=== PATIENT | female | born 1965 | race Caucasian/White ===

== ENCOUNTER 2018-08-30 14:20 | Observation (INO) | payer OTHER ==
[2018-08-30 17:59] LABS: ADD MAN DIFF? NO
[2018-08-30] MEDS: LORAZEPAM 2 MG INJ IV (18:03)
[2018-08-30] MEDS: SOD CHLORIDE 0.9% 1,000 ML IV (18:03)
[2018-08-30] MEDS: KETOROLAC 15 MG INJ IV (18:03)
[2018-08-30 18:13] LABS: BASOPHILS % 0.3 % (0.0-2.0); EOSINOPHILS % 4.4 % (0.0-7.0); HEMOGLOBIN 12.7 g/dl (12.0-16.0); LYMPHOCYTES % 38.3 % (15.0-51.0); MEAN CORPUSCULAR HEMOGLOBIN 30.7 pg (29.0-33.0); MEAN CORPUSCULAR HGB CONC 33.4 g/dl (32.0-37.0); MEAN CORPUSCULAR VOLUME 91.8 fl (82.0-101.0); NEUTROPHILS % 49.8 % (39.0-77.0); PLATELET COUNT 253 10^3/UL (140-415); RED BLOOD COUNT 4.14 10^6/ul (4.20-5.40)
[2018-08-30 18:13] LABS: WHITE BLOOD COUNT 5.7 10^3/ul (4.8-10.8)
[2018-08-30 18:25] LABS: INR 1.03; PROTIME 13.6 Sec (11.9-14.9); PT RATIO 1.1
[2018-08-30 18:27] LABS: ANION GAP 10 (5-13); BLOOD UREA NITROGEN 15 mg/dl (7-20); CALCIUM 9.4 mg/dl (8.4-10.2); CARBON DIOXIDE 26 mmol/L (21-31); CHLORIDE 107 mmol/L (97-110); CREATININE 0.49 mg/dl (0.44-1.00); Estimated GFR > 60 mL/min (>60); GLUCOSE 119 mg/dl (70-220); POTASSIUM 3.9 mmol/L (3.5-5.1); SODIUM 143 mmol/L (135-144)
[2018-08-30 18:38] LABS: TROPONIN-I < 0.012 ng/ml (0.000-0.120)
[2018-08-30] MEDS ORDERED: ACETAMINOPHEN 325 MG TAB PO (19:00)
[2018-08-30] MEDS ORDERED: ONDANSETRON 4 MG INJ IV ×2 (19:00→23:30)
[2018-08-30] MEDS: ASPIRIN 81 MG TAB PO (19:28)
[2018-08-30] MEDS: AL HYDROX/MG HYDROX/SIMETH 30 ML CUP PO (23:51)
[2018-08-30] MEDS: morphine 2 MG INJ IV (23:52)
[2018-08-31 01:18] LABS: CREATINE KINASE 102 IU/L (23-200)
[2018-08-31 01:31] LABS: CK INDEX 1.2; CK-MB 1.23 ng/ml (0.0-2.4); TROPONIN-I < 0.012 ng/ml (0.000-0.120)
[2018-08-31] MEDS: PANTOPRAZOLE 40 MG INJ IV (05:05)
[2018-08-31 06:57] LABS: CREATINE KINASE 83 IU/L (23-200)
[2018-08-31 07:06] LABS: CK INDEX 1.1; CK-MB 0.89 ng/ml (0.0-2.4); TROPONIN-I < 0.012 ng/ml (0.000-0.120)
[2018-08-31] MEDS: ASPIRIN 81 MG TAB PO (09:41)
[2018-08-31] MEDS: ACETAMINOPHEN 325 MG TAB PO (09:44)
[2018-08-31 13:53] LABS: TROPONIN-I < 0.012 ng/ml (0.000-0.120)
[2018-08-31] MEDS: IBUPROFEN 400 MG TAB PO ×2 (14:43→21:01)
[2018-08-31 17:48] LABS: CHOLESTEROL 188 mg/dl (100-200)
[2018-08-31 17:48] LABS: CHOL/HDL RATIO 4.7 RATIO; HDL CHOLESTEROL 40 mg/dl (37-92); LDL CHOLESTEROL,CALCULATED 114 mg/dl; TRIGLYCERIDES 171 mg/dl (0-149)
[2018-08-31] MEDS: ATORVASTATIN 80 MG TAB PO (21:01)
[2018-08-31] MEDS: AL HYDROX/MG HYDROX/SIMETH 30 ML CUP PO (21:46)
[2018-08-31 22:44] LABS: ADD UMIC YES; UR ASCORBIC ACID NEGATIVE (NEGATIVE); UR BILIRUBIN (Dip) NEGATIVE (NEGATIVE); UR BLOOD (Dip) NEGATIVE (NEGATIVE); UR CLARITY CLEAR (CLEAR); UR COLOR STRAW (YELLOW); UR GLUCOSE (Dip) NEGATIVE (NEGATIVE); UR KETONES (Dip) NEGATIVE (NEGATIVE); UR LEUKOCYTE ESTERASE (Dip) 3+ Leu/ul (NEGATIVE); UR NITRITE (Dip) NEGATIVE (NEGATIVE); UR RBC 3 /HPF (0-5); UR SPECIFIC GRAVITY (Dip) 1.009 (1.003-1.030); UR SQUAMOUS EPITHELIAL CELL FEW /HPF (FEW); UR TOTAL PROTEIN (Dip) NEGATIVE (NEGATIVE); UR UROBILINOGEN (Dip) NEGATIVE (NEGATIVE); UR WBC 53 /HPF (0-5)
[2018-08-31 22:56] LABS: AMPHETAMINE/METHAMPHETAMINE Negative (NEGATIVE); BARBITURATES Negative (NEGATIVE); BENZODIAZEPINES Negative (NEGATIVE); CANNABINOIDS Negative (NEGATIVE); COCAINE Negative (NEGATIVE); OPIATES Negative (NEGATIVE)
[2018-09-01] MEDS: PANTOPRAZOLE (EC) 40 MG TAB PO (06:10)
[2018-09-01] MEDS: IBUPROFEN 400 MG TAB PO ×3 (06:10→21:36)
[2018-09-01] MEDS: ASPIRIN 81 MG TAB PO (08:36)
[2018-09-01] MEDS: BALSAM PERU/CASTOR OIL 60 GM TUBE TOP ×2 (08:37→21:15)
[2018-09-01] MEDS: GABAPENTIN 300 MG CAP PO (21:14)
[2018-09-01] MEDS: ATORVASTATIN 80 MG TAB PO (21:14)
[2018-09-02] MEDS: IBUPROFEN 400 MG TAB PO ×2 (06:16→13:21)
[2018-09-02] MEDS: PANTOPRAZOLE (EC) 40 MG TAB PO (06:16)
[2018-09-02] MEDS: ASPIRIN 81 MG TAB PO (09:00)
[2018-09-02] MEDS: GABAPENTIN 300 MG CAP PO ×2 (09:00→13:21)
[2018-09-02] MEDS: BALSAM PERU/CASTOR OIL 60 GM TUBE TOP (09:01)
[2018-09-02 10:52] LABS: D-DIMER 306.73 ng/ml (<460)
[2018-09-02] MEDS: ENOXAPARIN 40 MG/0.4 ML SYG SC (14:30)
[2018-09-02] MEDS: CEFTRIAXONE 1 GM/50 ML (PMX) 50 ML IVPB (15:46)
== END 2018-09-02 17:50 | disposition home or self-care (01) ==
LOC: E/R 14:20 → 6WM 18:58
DX: M48.02 Spinal stenosis, cervical region (principal); R07.9 Chest pain, unspecified; E66.9 Obesity, unspecified; Z68.33 Body mass index [BMI] 33.0-33.9, adult; E78.5 Hyperlipidemia, unspecified; N39.0 Urinary tract infection, site not specified; R20.0 Anesthesia of skin
CPT/HCPCS: 36415; 70450; 70551; 71045; 71100; 72125; 72141; 80048; 80061; 80307; 81001; 82550; 82553; 84484; 85025; 85378; 85610; 85730; 93005; 93306; 96361; 96374; 96375; 97162; 99285-25; G0378

== ENCOUNTER 2018-12-22 22:17 | Emergency (ER) | payer OTHER ==
[2018-12-22 22:37] LABS: URINE BLOOD (Dip) POC Trace-intact (NEGATIVE); URINE GLUCOSE (Dip) POC Negative (NEGATIVE); URINE KETONES (Dip) POC Trace (NEGATIVE); URINE LEUKOCYTE EST (Dip) POC Trace (NEGATIVE); URINE NITRITE (Dip) POC Negative (NEGATIVE); URINE TOTAL PROTEIN POC Trace (NEGATIVE)
[2018-12-22 22:37] LABS: URINE PH (Dip) POC 5.5 (5.0-8.5)
[2018-12-22] MEDS: DIPHENHYDRAMINE 50 MG INJ IV (23:00)
[2018-12-22] MEDS: SOD CHLORIDE 0.9% 1,000 ML IV (23:00)
[2018-12-22] MEDS: KETOROLAC 30 MG INJ IV (23:01)
[2018-12-22 23:15] LABS: ADD MAN DIFF? NO
[2018-12-22 23:16] LABS: BASOPHILS % 0.5 % (0.0-2.0); EOSINOPHILS # 0.3 10^3/ul (0.0-0.5); EOSINOPHILS % 4.3 % (0.0-7.0); HEMATOCRIT 39.5 % (37.0-47.0); HEMOGLOBIN 13.6 g/dl (12.0-16.0); LYMPHOCYTES # 2.2 10^3/ul (0.8-2.9); LYMPHOCYTES % 36.2 % (15.0-51.0); MEAN CORPUSCULAR HEMOGLOBIN 31.5 pg (29.0-33.0); MEAN CORPUSCULAR HGB CONC 34.4 g/dl (32.0-37.0); MEAN CORPUSCULAR VOLUME 91.4 fl (82.0-101.0); MEAN PLATELET VOLUME 9.9 fl (7.4-10.4); MONOCYTE # 0.4 10^3/ul (0.3-0.9); MONOCYTES % 7.3 % (0.0-11.0); NEUTROPHIL # 3.1 10^3/ul (1.6-7.5); NEUTROPHILS % 51.4 % (39.0-77.0); PLATELET COUNT 264 10^3/UL (140-415); RED BLOOD COUNT 4.32 10^6/ul (4.20-5.40)
[2018-12-22 23:34] LABS: ALANINE AMINOTRANSFERASE 27 IU/L (13-69); ALBUMIN 4.3 g/dl (3.3-4.9); ALBUMIN/GLOBULIN RATIO 1.34; ALKALINE PHOSPHATASE 128 IU/L (42-121); ANION GAP 12 (5-13); ASPARTATE AMINO TRANSFERASE 28 IU/L (15-46); BILIRUBIN,INDIRECT 0.3 mg/dl (0-1.1); BILIRUBIN,TOTAL 0.3 mg/dl (0.2-1.3); BLOOD UREA NITROGEN 15 mg/dl (7-20); CALCIUM 9.2 mg/dl (8.4-10.2); CARBON DIOXIDE 25 mmol/L (21-31); CHLORIDE 106 mmol/L (97-110); CREATININE 0.62 mg/dl (0.44-1.00); Estimated GFR > 60 mL/min (>60); GLUCOSE 104 mg/dl (70-220); LIPASE 106 U/L (23-300); SODIUM 143 mmol/L (135-144); TOTAL PROTEIN 7.5 g/dl (6.1-8.1)
[2018-12-22] MEDS: PROCHLORPERAZINE 10 MG INJ IV (23:43)
[2018-12-22 23:46] LABS: TROPONIN-I < 0.012 ng/ml (0.000-0.120)
== END 2018-12-23 01:08 | disposition home or self-care (01) ==
LOC: FTE 12-23 01:08
DX: R51 Headache (principal); R10.9 Unspecified abdominal pain; Z79.82 Long term (current) use of aspirin
CPT/HCPCS: 36415; 71045; 80053; 81003; 83690; 84484; 85025; 93005; 96374; 96375; 99285-25

== ENCOUNTER → 2018-12-31 | Emergency (ER) | payer OTHER ==
[2018-12-31] MEDS: ONDANSETRON (ODT) 4 MG TAB ODT (14:22)
[2018-12-31] MEDS: ACETAMINOPHEN 325 MG TAB PO (14:22)
[2018-12-31 14:31] LABS: ADD MAN DIFF? NO
[2018-12-31 14:38] LABS: BASOPHILS % 0.4 % (0.0-2.0); EOSINOPHILS # 0.2 10^3/ul (0.0-0.5); EOSINOPHILS % 4.1 % (0.0-7.0); HEMATOCRIT 38.4 % (37.0-47.0); HEMOGLOBIN 13.4 g/dl (12.0-16.0); LYMPHOCYTES # 1.8 10^3/ul (0.8-2.9); MEAN CORPUSCULAR HEMOGLOBIN 31.8 pg (29.0-33.0); MEAN CORPUSCULAR HGB CONC 34.9 g/dl (32.0-37.0); MEAN PLATELET VOLUME 10.2 fl (7.4-10.4); MONOCYTE # 0.3 10^3/ul (0.3-0.9); MONOCYTES % 6.1 % (0.0-11.0); NEUTROPHIL # 3.1 10^3/ul (1.6-7.5); NEUTROPHILS % 56.2 % (39.0-77.0); PLATELET COUNT 272 10^3/UL (140-415); RED BLOOD COUNT 4.22 10^6/ul (4.20-5.40); RED CELL DISTRIBUTION WIDTH 12.1 % (11.5-14.5)
[2018-12-31 14:38] LABS: WHITE BLOOD COUNT 5.6 10^3/ul (4.8-10.8)
[2018-12-31 14:42] LABS: ADD UMIC YES; UR ASCORBIC ACID NEGATIVE (NEGATIVE); UR BILIRUBIN (Dip) NEGATIVE (NEGATIVE); UR BLOOD (Dip) NEGATIVE (NEGATIVE); UR CLARITY CLEAR (CLEAR); UR COLOR YELLOW (YELLOW); UR GLUCOSE (Dip) NEGATIVE (NEGATIVE); UR KETONES (Dip) NEGATIVE (NEGATIVE); UR LEUKOCYTE ESTERASE (Dip) 1+ Leu/ul (NEGATIVE); UR NITRITE (Dip) NEGATIVE (NEGATIVE); UR RBC 1 /HPF (0-5); UR SPECIFIC GRAVITY (Dip) 1.017 (1.003-1.030); UR SQUAMOUS EPITHELIAL CELL FEW /HPF (FEW); UR TOTAL PROTEIN (Dip) NEGATIVE (NEGATIVE); UR UROBILINOGEN (Dip) NEGATIVE (NEGATIVE); UR WBC 8 /HPF (0-5)
[2018-12-31 14:52] LABS: ANION GAP 9 (5-13); BLOOD UREA NITROGEN 15 mg/dl (7-20); CALCIUM 9.7 mg/dl (8.4-10.2); CARBON DIOXIDE 27 mmol/L (21-31); CHLORIDE 106 mmol/L (97-110); CREATININE 0.58 mg/dl (0.44-1.00); Estimated GFR > 60 mL/min (>60); GLUCOSE 99 mg/dl (70-220); POTASSIUM 4.5 mmol/L (3.5-5.1); SODIUM 142 mmol/L (135-144)
== END | disposition home or self-care (01) ==
LOC: FTE 10:53
DX: N39.0 Urinary tract infection, site not specified (principal); R51 Headache; R40.2142 Coma scale, eyes open, spontaneous, at arrival to emergency department; R40.2362 Coma scale, best motor response, obeys commands, at arrival to emergency department; R40.2252 Coma scale, best verbal response, oriented, at arrival to emergency department; Z79.82 Long term (current) use of aspirin
CPT/HCPCS: 70450; 80048; 81001; 85025; 99284-25